=== PATIENT | female | born 1970 | race Caucasian/White ===

== ENCOUNTER 2020-03-22 16:31 | Emergency (ER) | payer BC ==
[~2020-03-22] VITALS: Ht 170.2 cm; Wt 105.7 kg
[2020-03-22 16:40] VITALS: BP_SYST 162
[2020-03-22] MEDS ORDERED: LIDOCAINE 1% 10 MG/ML, 20 ML MDV INJ ONE (18:00)
[2020-03-22] MEDS ORDERED: CLINDAMYCIN HCL 150 MG CAPSULE PO ONE (18:30)
[2020-03-22 19:25] VITALS: BP_SYST 164
== END 2020-03-22 19:25 | disposition home or self-care (01) ==
LOC: SED 16:31
DX: T22.151A Burn of first degree of right shoulder, initial encounter (principal); T31.0 Burns involving less than 10% of body surface; L02.91 Cutaneous abscess, unspecified; Z88.0 Allergy status to penicillin; Z88.8 Allergy status to other drugs, medicaments and biological substances; X19.XXXA Contact with other heat and hot substances, initial encounter; Y93.89 Activity, other specified; Y92.89 Other specified places as the place of occurrence of the external cause; Y99.8 Other external cause status
CPT/HCPCS: 99283

== ENCOUNTER 2020-03-24 07:52 | Emergency (ER) | payer BC ==
[~2020-03-24] VITALS: Ht 170.2 cm; Wt 105.7 kg
[2020-03-24 07:52] VITALS: BP_SYST 158
[2020-03-24] MEDS ORDERED: BACITRACIN 1 GM OINT TP ONE (08:34)
== END 2020-03-24 08:23 | disposition home or self-care (01) ==
LOC: SED 07:52
DX: Z48.00 Encounter for change or removal of nonsurgical wound dressing (principal); Z88.0 Allergy status to penicillin; Z88.8 Allergy status to other drugs, medicaments and biological substances
CPT/HCPCS: 99282

== ENCOUNTER 2020-09-29 15:51 | Emergency (ER) | payer SELFPAY ==
[~2020-09-29] VITALS: Ht 170.2 cm; Wt 108.9 kg
[2020-09-29 16:00] VITALS: BP_SYST 165
--- NOTE | 2020-09-29 16:00 | NUR ---
SENT TO WAITING ROOM NO BEDS
--- NOTE | 2020-09-29 17:00 | NUR ---
STATUS UNCHANGE PT IN WAITING ROOM
[2020-09-29 17:30] VITALS: BP_SYST 133
--- NOTE | 2020-09-29 21:13 | NUR ---
CALLED FOR BED PLACEMENT. PATIENT NO LONGER IN WAITING ROOM.
== END 2020-09-29 21:13 | disposition left against medical advice (07) ==
LOC: SED 15:51
DX: R51.9 Headache, unspecified (principal); Z53.21 Procedure and treatment not carried out due to patient leaving prior to being seen by health care provider

== ENCOUNTER 2020-09-30 04:32 | Emergency (ER) | payer BC ==
[~2020-09-30] VITALS: Ht 170.2 cm; Wt 108.9 kg
[2020-09-30 04:45] VITALS: BP_SYST 156
--- NOTE | 2020-09-30 04:48 | NUR ---
Patient to ER bed 07 to gown for evaluation. Side rails up. Report given to ANOTLIN Suero
--- NOTE | 2020-09-30 04:50 | NUR ---
ER PT WALKED IN. PT C/O PAIN TO BACK OF THE HEAD X 1 WEEK. (+)SWELLING (+) REDNESS TO OCCIPUT. PT STATES SHE HAS HAD 3 ABSCESSES IN PAST YEAR. PT DENIES ANY FEVER OR CHILLS. PT SITTING IN BED. SAFETY PRECAUTIONS IN PLACE. WILL CONTINUE TO MONITOR.
--- NOTE | 2020-09-30 04:52 | NUR ---
MD DR. CLEMENTE AT BEDSIDE. AWAITING ORDERS
--- NOTE | 2020-09-30 04:55 | NUR ---
MD CLEMENTE DRAINED ABSCESS. LARGE AMOUNTS OF PURULENT DISCHARGE NOTED. PT TOLERATED PROCEDURE WELL. WILL CONTINUE TO MONITOR. Addendum: 09/30/20 at 0529 by KACY AREA CLEANSED WITH NS. PT INSTRUCTED TO APPLY HOT COMPRESSES.
[2020-09-30] MEDS ORDERED: SULFAMETHOXAZOLE/TRIMETHOPR DS 1 TABLET ONE (05:11)
[2020-09-30] MEDS ORDERED: SULFAMETHOXAZOLE/TRIMETHOPR DS 1 TABLET PO ONE (05:15)
--- NOTE | 2020-09-30 05:30 | NUR ---
Patient given written and verbal discharge instructions and verbalizes understanding. ER MD discussed with patient the results and treatment provided. Patient in stable condition. ID arm band removed. Rx of BACTRIM given. Patient educated on pain management and to follow up with PMD. Pain Scale 1/10. Opportunity for questions provided and answered. Medication side effect fact sheet provided.
[2020-09-30 05:34] VITALS: BP_SYST 156
== END 2020-09-30 04:48 | disposition home or self-care (01) ==
LOC: SED 04:32
DX: L02.811 Cutaneous abscess of head [any part, except face] (principal); I10 Essential (primary) hypertension; R51.9 Headache, unspecified; F31.9 Bipolar disorder, unspecified
CPT/HCPCS: 99283; 99284